=== PATIENT | female | born 1960 | race Caucasian/White ===

== ENCOUNTER → 2017-06-19 | Outpatient (CLI) | payer OTHER ==
[~2017-06-19] MED LIST: BUPR150ER PO; FLUO10 PO; SIMV10 PO
[2017-06-19 15:03] LABS: BASOPHILS ABSOLUTE AUTO 0.02 K/mm3 (0.00-0.23); BASOPHILS PERCENT AUTO 0 % (0-2); EOSINOPHILS ABSOLUTE AUTO 0.06 K/mm3 (0.00-0.68); EOSINOPHILS PERCENT AUTO 1 % (0-6); Hematocrit 42.9 % (33.0-51.0); IMMATURE GRAN ABSOLUTE AUTO 0.01 K/mm3 (0.00-0.10); IMMATURE GRAN PERCENT AUTO 0 % (0-1); LYMPHOCYTES ABSOLUTE AUTO 1.99 K/mm3 (0.84-5.20); LYMPHOCYTES PERCENT AUTO 24 % (21-46); MONOCYTES PERCENT AUTO 8 % (4-13); Mean Corpuscular HGB 29.6 pg (26.0-34.0); Mean Corpuscular HGB Conc 32.6 g/dL (31.5-36.5); Mean Corpuscular Volume 91 fL (80-100); NEUTROPHILS ABSOLUTE AUTO 5.62 K/mm3 (1.96-9.15); NEUTROPHILS PERCENT AUTO 67 % (41-73); Platelet Count 284 K/mm3 (150-400); RDW Coefficient Variation 13.4 % (11.7-14.2); RDW Standard Deviation 44.3 fL (35.1-46.3); Red Blood Cell Count 4.73 M/mm3 (3.80-5.20)
[2017-06-19 15:24] LABS: Alanine Aminotransfer (ALT/SGP 33 U/L (12-78); Albumin, Blood 3.5 g/dL (3.4-5.0); Albumin/Globulin Ratio 0.9 (0.8-1.8); Alk Phos 107 U/L (50-136); Anion Gap 5 mmol/L (6-16); Aspartate Aminotrans (AST/SGOT 17 U/L (12-37); Bilirubin, Total 0.3 mg/dL (0.1-1.0); Blood Urea Nitrogen 15 mg/dL (8-24); CO2, Blood 30 mmol/L (21-32); Calcium, Blood 9.2 mg/dL (8.5-10.1); Chloride, Blood 106 mmol/L (98-108); Cholesterol 241 mg/dL (50-200); Globulin, Blood 4.1 g/dL (2.2-4.0); Glucose, Blood 93 mg/dL (70-99); HDL Cholesterol 61 mg/dL (>39); LDL/HDL RATIO 1.9; Low Density Lipoprotein Chol 116 mg/dL (0-110); Potassium, Blood 4.3 mmol/L (3.5-5.5); Sodium, Blood 141 mmol/L (136-145); Total Protein, Blood 7.6 g/dL (6.4-8.2); Triglycerides 321 mg/dL (30-160); Very Low Density Lipoprot Chol 64 mg/dL (6-32)
[2017-06-19 15:25] LABS: Bun/Creatinine Ratio 31.1 (12.0-20.0); Creatinine, Blood 0.48 mg/dL (0.40-1.00); Glomerular Filtration Rate >60 (60-)
== END | disposition home or self-care (01) ==
LOC: LAB SHORT 14:31
PROVIDERS: Physician Assistant
DX: E78.5 Hyperlipidemia, unspecified (principal); R11.0 Nausea
CPT/HCPCS: 80053; 80061; 85025

== ENCOUNTER → 2018-03-09 | Outpatient (CLI) | payer OTHER ==
[2018-03-11 05:15] LABS: HBSAG SCREEN Negative (Negative); HCV ANTIBODY <0.1 (0.0-0.9); HIV SCREEN 4TH GENERATION WRFX Non Reactive (Non Reactive)
== END ==
LOC: LAB EV 14:55 → LAB SHORT 14:55
PROVIDERS: Family Medicine
DX: Z20.9 Contact with and (suspected) exposure to unspecified communicable disease (principal)
CPT/HCPCS: 84460; 86317; 86803; 87340; 87389

== ENCOUNTER → 2018-04-20 | Outpatient (CLI) | payer OTHER ==
[2018-04-22 01:13] LABS: HIV SCREEN 4TH GENERATION WRFX Non Reactive (Non Reactive)
== END | disposition home or self-care (01) ==
LOC: LAB SHORT 10:41 → LAB EV 10:41
PROVIDERS: Family Medicine
DX: Z20.9 Contact with and (suspected) exposure to unspecified communicable disease (principal)
CPT/HCPCS: 86803; 87389

== ENCOUNTER → 2018-06-08 | Outpatient (CLI) | payer OTHER ==
[2018-06-09 07:06] LABS: HIV SCREEN 4TH GENERATION WRFX Non Reactive (Non Reactive)
== END | disposition home or self-care (01) ==
LOC: LAB SHORT 07:39 → LAB EV 07:39
PROVIDERS: Physician Assistant
DX: Z20.9 Contact with and (suspected) exposure to unspecified communicable disease (principal)
CPT/HCPCS: 87389

== ENCOUNTER → 2018-09-06 | Outpatient (CLI) | payer OTHER ==
[2018-09-08 07:14] LABS: HCV ANTIBODY <0.1 (0.0-0.9); HIV SCREEN 4TH GENERATION WRFX Non Reactive (Non Reactive)
== END | disposition home or self-care (01) ==
LOC: LAB EV 09:58 → LAB SHORT 09:58
PROVIDERS: General Practice
DX: Z20.9 Contact with and (suspected) exposure to unspecified communicable disease (principal)
CPT/HCPCS: 84460; 86317; 86803; 87389

== ENCOUNTER 2022-08-04 17:55 | Inpatient (IN) | payer OTHER ==
[~2022-08-04] VITALS: Ht 157.5 cm; Wt 58.3 kg
[2022-08-04 18:53] LABS: BASOPHILS ABSOLUTE AUTO 0.02 K/mm3 (0.00-0.23); BASOPHILS PERCENT AUTO 0 % (0-2); EOSINOPHILS PERCENT AUTO 0 % (0-6); Hematocrit 51.6 % (33.0-51.0); Hemoglobin 17.6 g/dL (11.5-16.0); IMMATURE GRAN ABSOLUTE AUTO 0.04 K/mm3 (0.00-0.10); IMMATURE GRAN PERCENT AUTO 0 % (0-1); LYMPHOCYTES PERCENT AUTO 9 % (21-46); MONOCYTES ABSOLUTE AUTO 1.51 K/mm3 (0.16-1.47); MONOCYTES PERCENT AUTO 10 % (4-13); Mean Corpuscular HGB 29.3 pg (26.0-34.0); Mean Corpuscular HGB Conc 34.1 g/dL (31.5-36.5); Mean Corpuscular Volume 86 fL (80-100); Mean Platelet Volume 10.5 fL (9.1-12.4); NEUTROPHILS ABSOLUTE AUTO 12.81 K/mm3 (1.96-9.15); NEUTROPHILS PERCENT AUTO 81 % (41-73); Platelet Count 205 K/mm3 (150-400); RDW Coefficient Variation 13.8 % (11.7-14.2); RDW Standard Deviation 42.9 fL (35.1-46.3); Red Blood Cell Count 6.01 M/mm3 (3.80-5.20); White Blood Cell Count 15.88 K/mm3 (4.00-11.30)
[2022-08-04 19:10] LABS: Albumin, Blood 3.9 g/dL (3.4-5.0); Albumin/Globulin Ratio 0.9 (0.8-1.8); Bilirubin, Total 0.5 mg/dL (0.1-1.0); Bun/Creatinine Ratio 37.5 (12.0-20.0); Creatinine, Blood 1.84 mg/dL (0.40-1.00); Globulin, Blood 4.3 g/dL (2.2-4.0); Potassium, Blood 3.7 mmol/L (3.5-5.5); Total Protein, Blood 8.2 g/dL (6.4-8.2)
[2022-08-04 19:18] LABS: Influenza A, PCR NEGATIVE (NEGATIVE); Influenza B, PCR NEGATIVE (NEGATIVE); Resp Syncytial Virus, PCR NEGATIVE (NEGATIVE); SARS-Cov-2 (COVID-19) PCR, MMC NEGATIVE (NEGATIVE)
[2022-08-04 22:09] LABS: Source, Urine Clean Catch
[2022-08-04 22:11] LABS: Blood, Urine 2+ (Neg); Glucose Qualitative, Urine Neg (Neg); Ketones, Urine Neg (Neg); Leukocyte Esterase, Urine Neg (Neg); Nitrite, Urine Neg (Neg); Protein, Urine 3+ (Neg); Specific Gravity, Urine 1.025 (1.003-1.022); Urobilinogen, Urine NORM (Normal)
[2022-08-04 22:21] LABS: Appearance, Urine Cloudy (Clear); Bilirubin, Urine 1+ (Neg); Color, Urine Yellow (P-Yellow)
[2022-08-04 22:22] LABS: Amorphous Mod (0-Heavy); Bacteria Mod /hpf; Hyaline Casts TNTC /lpf (0-2); Mucus Light (0-Heavy); Squamous Epithelial Cells Few /hpf (Few)
[2022-08-04 22:23] LABS: Calcium Oxalate Crystals Few /hpf
--- NOTE | 2022-08-05 00:45 | NUR ---
PT ARRIVED TO ROOM FROM ER. PT A/O, VSS, REP MILD DIZZINESS HAND POLISHER R/T DEHYDRATION, DENIES AT THIS TIME. PT HAS LARGE LOWER ABD MASS, STATES MASS HAS BEEN PRESENT APPX 8 YEARS. PT REP ABD DOES FEEL MORE DISTENDED FROM BASELINE, REP PAIN IN ABD. PT REP MULTIPLE EPISODES OF N/V W/PO INTAKE, DENIES AT THIS TIME. ABD SLIGHTLY FIRM TO PALP. PT REP NO BM X1 WEEK, DENIES FLATUS. PT ORIENTED TO ROOM/CALL LIGHT AND NPO STATUS. IVF INFUSING PER ORDERS.
--- NOTE | 2022-08-05 06:45 | NUR ---
PT HAD 1 EPISODE OF N/V SINCE ARRIVING TO FLOOR, PT DECLINED NGT. PT DENIED ABD PAIN, REP NO FLATUS. PT NPO, IVF CONT PER ORDERS.
--- NOTE | 2022-08-05 10:30 | NUR ---
NG TUBE INSERTED PER MD ORDERS, 2200ML OF GREEN/BROWN FLUID IMMEDIATELY CAME OUT TO GRAVITY. BP CHECKED AND REMAINS STABLE AT THIS TIME. PLAN TO REASSES PATIENT FREQUENTLY D/T LARGE FLUID LOSS. NG TUBE TO LIS AT THIS TIME. PATIENT TOLERATING WELL.
--- NOTE | 2022-08-05 17:50 | NUR ---
SHIFT SUMMARY NO ACUTE CHANGES THIS SHIFT. PATIENT HAS HAD VERY LARGE AMOUNT OUT OF NG TUBE SINCE INSERTION, TOLERATING WELL. DENIES N/V SINCE HAVING NG TUBE. DENIES PAIN. NPO CURRENTLY. IND TO BATHROOM, VOIDING WELL. DENIES FLATUS & BM. CALLS APPROPRIATELY, CALL LIGHT IN REACH. WILL REPORT TO ONCOMING RN AT 1900.
[2022-08-06 04:16] LABS: Hematocrit 46.7 % (33.0-51.0); Hemoglobin 15.6 g/dL (11.5-16.0); Mean Corpuscular HGB 29.5 pg (26.0-34.0); Mean Corpuscular HGB Conc 33.4 g/dL (31.5-36.5); Mean Corpuscular Volume 88 fL (80-100); Mean Platelet Volume 11.2 fL (9.1-12.4); Platelet Count 134 K/mm3 (150-400); RDW Coefficient Variation 13.7 % (11.7-14.2); RDW Standard Deviation 44.8 fL (35.1-46.3); Red Blood Cell Count 5.28 M/mm3 (3.80-5.20); White Blood Cell Count 5.08 K/mm3 (4.00-11.30)
--- NOTE | 2022-08-06 06:07 | NUR ---
Patient independent in room. Denies nausea and pain at this time. Abdomen has large hernia visible and palpable. Bowel sounds are hypoactive. NG TUBE output is dark green with a total output of 3600mL. Voiding well, patient reports flatulence. No stool noted.
[2022-08-06 07:26] LABS: Blood Urea Nitrogen 60 mg/dL (8-24); Bun/Creatinine Ratio 66.4 (12.0-20.0); Chloride, Blood 83 mmol/L (98-108); Glomerular Filtration Rate 72 (60-); Glucose, Blood 136 mg/dL (70-99); Sodium, Blood 143 mmol/L (136-145)
[2022-08-06 07:27] LABS: Anion Gap Unable to Calculate mmol/L (6-16); CO2, Blood >45 mmol/L (21-32)
[2022-08-06 07:28] LABS: Potassium, Blood 2.4 mmol/L (3.5-5.5)
--- NOTE | 2022-08-06 09:28 | NUR ---
PT DISCONNECTED FROM SUCTION AT THIS TIME FOR SBFT. EDUCATED PT ON IMPORTANCE OF NOTIFYING NURSING STAFF IF SHE BEGINS TO FEEL NAUSEOUS AGAIN WHILE CLAMPED.
[2022-08-06 14:18] LABS: Anion Gap Unable to Calculate mmol/L (6-16); CO2, Blood >45 mmol/L (21-32); Chloride, Blood 82 mmol/L (98-108); Potassium, Blood 2.5 mmol/L (3.5-5.5); Sodium, Blood 151 mmol/L (136-145)
[2022-08-06 16:32] LABS: PCO2 Venous 70.3 mmHg (38-42)
[2022-08-06 16:34] LABS: Base Excess Venous 47.4 mmol/L; Bicarbonate Venous 67.9 mmol/L (24.0-30.0)
--- NOTE | 2022-08-06 18:16 | NUR ---
SHIFT SUMMARY ASSUMED CARE OF PATIENT AT 1000. ALERT AND ORIENTED AND ANXIOUS IN THE ROOM. SMALL BOWEL FOLLOW THROUGH STUDY WAS IN PROGRESS. NG TUBE IN PLACE AND CLAMPED. PATIENT DENIED NAUSEA EARLY IN DAY, PROGRESSIVELY FELT WORSE THROUGH AFTERNOON. STATED ABD FELT MORE DISTENDED AND HARD. DIFFICULT TO ASSESS DUE TO LARGE ABD HERNIA. DENIES PASSING GAS. VBGS RESULTS IN EMAR. DIAMOX ORDERED. 20 MEQ NS RUNNING. REATTACHED NG TO LOW CONT SUCTION, FLUSHED WITH SYRINGE AND 3L OUTPUT. TELE PLACED DUE TO LOW POTASSIUM, TELE CALLED WITH NEW ST ELEVATION. EKG DONE, RESULTS CALLED TO DR MARSHALL. ORDERS TO CONTINUE TO MONITORING. PATIENT REPORTS ABD PRESSURE RELIEF AFTER 3L OUTPUT. O2 PLACED VIA NC TO KEEP SATS ABOVE 90%. OTHER VSS. WILL CONTINUE TO MONITOR.
[2022-08-06 20:56] LABS: Anion Gap Unable to Calculate mmol/L (6-16); Blood Urea Nitrogen 70 mg/dL (8-24); Bun/Creatinine Ratio 58.3 (12.0-20.0); CO2, Blood >45 mmol/L (21-32); Calcium, Blood 10.2 mg/dL (8.5-10.1); Chloride, Blood 81 mmol/L (98-108); Glomerular Filtration Rate 51 (60-); Glucose, Blood 139 mg/dL (70-99); Potassium, Blood 2.2 mmol/L (3.5-5.5); Sodium, Blood 152 mmol/L (136-145)
[2022-08-07 03:33] LABS: Hematocrit 53.1 % (33.0-51.0); Hemoglobin 16.7 g/dL (11.5-16.0); Mean Corpuscular HGB 29.8 pg (26.0-34.0); Mean Corpuscular HGB Conc 31.5 g/dL (31.5-36.5); Mean Platelet Volume 11.7 fL (9.1-12.4); Platelet Count 158 K/mm3 (150-400); RDW Coefficient Variation 13.9 % (11.7-14.2); RDW Standard Deviation 49.5 fL (35.1-46.3); White Blood Cell Count 9.69 K/mm3 (4.00-11.30)
[2022-08-07 04:31] LABS: Alanine Aminotransfer (ALT/SGP 26 U/L (12-78); Albumin, Blood 3.2 g/dL (3.4-5.0); Albumin/Globulin Ratio 0.8 (0.8-1.8); Alk Phos 102 U/L (50-136); Aspartate Aminotrans (AST/SGOT 26 U/L (12-37); Bilirubin, Total 0.7 mg/dL (0.1-1.0); Blood Urea Nitrogen 78 mg/dL (8-24); Bun/Creatinine Ratio 47.9 (12.0-20.0); Calcium, Blood 9.8 mg/dL (8.5-10.1); Chloride, Blood 86 mmol/L (98-108); Creatinine, Blood 1.63 mg/dL (0.40-1.00); Globulin, Blood 4.2 g/dL (2.2-4.0); Glomerular Filtration Rate 35 (60-); Glucose, Blood 172 mg/dL (70-99); Potassium, Blood 3.2 mmol/L (3.5-5.5); Sodium, Blood 151 mmol/L (136-145); Total Protein, Blood 7.4 g/dL (6.4-8.2)
[2022-08-07 04:32] LABS: Anion Gap Unable to Calculate mmol/L (6-16)
[2022-08-07 04:33] LABS: CO2, Blood >45 mmol/L (21-32)
[2022-08-07 04:44] LABS: Mean Corpuscular Volume 95 fL (80-100)
--- NOTE | 2022-08-07 05:06 | NUR ---
SHIFT SUMMARY PT RESTED WELL. DENIES ABD PAIN + REPORTS FLATUS. NO BMS THIS SHIFT. NGT TO LIS WITH GREEN OUTPUT. NPO WITH SMALL AMOUNT OF ICE CHIPS. 1 SBA TO RESTROOM. X1 K+ RIDER GIVEN THIS SHIFT. IVF INFUSING PER ORDERS. NO TELE CHANGES--REMAINS IN NSR. PT REPORTS SHE IS FEELING BETTER AND IS HUNGRY AND WANTS TO EAT. CALL LIGHT WITHIN REACH.
[2022-08-07 05:23] LABS: BAND PERCENT MAN 13 % (0-8); BASOPHILS PERCENT MAN 0 % (0-2); EOSINOPHILS ABSOLUTE MAN 0.09 K/mm3 (0.00-0.68); EOSINOPHILS PERCENT MAN 1 % (0-6); LYMPHOCYTES ABSOLUTE MAN 0.67 K/mm3 (0.84-5.20); LYMPHOCYTES PERCENT MAN 7 % (21-46); MONOCYTES ABSOLUTE MAN 1.45 K/mm3 (0.16-1.47); MONOCYTES PERCENT MAN 15 % (4-13); NEUTROPHILS ABSOLUTE MAN 7.46 K/mm3 (1.96-9.15); SEG NEUTROPHILS PERCENT MAN 64 % (41-73); TOTAL CELLS COUNTED 100
[2022-08-07 11:59] LABS: Anion Gap Unable to Calculate mmol/L (6-16); Blood Urea Nitrogen 86 mg/dL (8-24); Bun/Creatinine Ratio 43.7 (12.0-20.0); CO2, Blood >45 mmol/L (21-32); Calcium, Blood 9.3 mg/dL (8.5-10.1); Chloride, Blood 86 mmol/L (98-108); Creatinine, Blood 1.97 mg/dL (0.40-1.00); Glomerular Filtration Rate 28 (60-); Glucose, Blood 226 mg/dL (70-99); Potassium, Blood 2.7 mmol/L (3.5-5.5); Sodium, Blood 152 mmol/L (136-145)
[2022-08-07 12:57] LABS: PCO2 Venous 55.9 mmHg (38-42)
[2022-08-07 12:59] LABS: Base Excess Venous 46.3 mmol/L; Bicarbonate Venous 70.3 mmol/L (24.0-30.0); pH Blood Venous 7.68 (7.34-7.37)
[2022-08-07 13:19] LABS: PO2 Arterial 59.1 mmHg (80-100)
[2022-08-07 13:26] LABS: Magnesium, Blood 3.6 mg/dL (1.6-2.4)
[2022-08-07 13:47] LABS: Albumin, Blood 2.8 g/dL (3.4-5.0); Anion Gap Unable to Calculate mmol/L (6-16); Blood Urea Nitrogen 87 mg/dL (8-24); Bun/Creatinine Ratio 46.5 (12.0-20.0); CO2, Blood >45 mmol/L (21-32); Calcium, Blood 9.3 mg/dL (8.5-10.1); Chloride, Blood 88 mmol/L (98-108); Creatinine, Blood 1.87 mg/dL (0.40-1.00); Glomerular Filtration Rate 30 (60-); Glucose, Blood 223 mg/dL (70-99); Phosphorus, Blood 3.9 mg/dL (2.5-4.9); Potassium, Blood 2.6 mmol/L (3.5-5.5); Sodium, Blood 154 mmol/L (136-145)
--- NOTE | 2022-08-07 14:14 | NUR ---
MORNING SHIFT SUMMARY PATIENT FATIGUED AND DROWSY IN BED THIS AM. WEAK AND SHAKEY WITH SBA TO TOILET. REPORTED FEELING EXHAUSTED. NG TUBE TO L CONT SUCTION. NG REQUIRES FREQUENT FLUSH WITH PISTON SYRINGE TO CLEAR. 900 OUTPUT AT BEGINNING OF SHIFT. DARK GREEN WITH SMALL CHUNKS. TELE NSR IN 80S WITH QT PROLONGATION PER UMBRELLA FINISHER. DESATS OCCASIONALLY ON RA, PLACED TO 1 L O2 VIA NC. OTHER VSS. LABS: KIDNEY FUNCTION DETERIORATING, ALKALOTIC. IV FLUID ORDERS CHANGED SEVERAL TIMES. DR MARSHALL EXAMINED PATIENT X2 DURING AM. DR VELASQUEZ EXAMINED PATIENT. MENTATION CONTINUED TO DETERIORATE BY LUNCH TIME, DIFFICULTY STATING HER LOCATION AND THE DATE. VERY LETHARGIC. URINE OUTPUT IS LOW. ORDERS GIVEN TO TRANSFER PATIENT TO PCU FOR DECREASED MENTATION AND WORSENING ALKALOSIS. SBFT DURING AM SHOWED PERSISTENT SBO, HOWEVER PATIENT DID REPORT PASSING GAS. ORDERS WERE GIVEN TO CONSULT DR HDEZ, OBTAIN 1V CHEST XRAY, HEAD CT, AND VBG AND ABG. XRAY COMPLETED IN ROOM, PATIENT TRANSPORTED TO CT, REPORT GIVEN TO PCU NURSE AT BEDSIDE IN PCU ROOM 1. RT TO BEDSIDE TO DRAW ABG. DR HDEZ EXAMINED PATIENT.
--- NOTE | 2022-08-07 14:21 | NUR ---
BLADDER SCAN 113.
--- NOTE | 2022-08-07 14:45 | NUR ---
Pt arrived to PCU [address] scan of the head. She was not alert, but lethargic, opening eyes to conversation. Able to correct the pronunciation of her name, give us her location, but unable to give any date/time/season. She was able to say that the POTUS is Biden. Most of the questions asked of her she says, "let me think" and then cannot answer. Sleeping in between all care. Vital signs are stable, but she is requiring oxygen at 2 l/min to keep spo2 greater than 94%. PERRL. Symmetry of her facial expressions; soft palate rises symmetrically. No lateral tongue deviation. Mucous membranes are dry. Pt is NPO. NGT is in place, evacuating dark greenish liquid to low continuous suction. Equal strength and symmetry of movement of her extremities. Skin is pink, warm, intact and dry all extremities, with brisk capillary refill.
--- NOTE | 2022-08-07 15:09 | NUR ---
Call to Dr. Hewitt to give results of labs drawn at 12:45. New orders were recieved.
--- NOTE | 2022-08-07 15:40 | NUR ---
Vacuum suction wall unit changed to accomodate intermittent suction. NGT now to LIS. Dr. Jorgensen consulted, per Dr. Hewitt's request. No new orders.
--- NOTE | 2022-08-07 16:52 | NUR ---
The pt has remained lethargic, sleepy, only opening eyes to conversation, and then she is not always coherent. She is mumbling in her sleep, frequently self-repositioning, throwing her covers off and turning side to side. Minimal output from the NGT since 2 pm; less than 100 cc. Noted occasional periods of apnea, about 20-30 seconds and reported to warehouse engineer. Continuous monitoring of heart rhythm, respirations, spo2 and q2 monitoring of blood pressure. All are stable at this time. Neuro checks remain unchanged.
--- NOTE | 2022-08-07 18:36 | NUR ---
Call to Dr. Hewitt's cell phone, as he requested, to report Na and K results. No answer; voice mail was left.
[2022-08-07 23:11] LABS: Albumin, Blood 2.6 g/dL (3.4-5.0); Blood Urea Nitrogen 92 mg/dL (8-24); Bun/Creatinine Ratio 48.9 (12.0-20.0); Calcium, Blood 8.5 mg/dL (8.5-10.1); Chloride, Blood 88 mmol/L (98-108); Creatinine, Blood 1.88 mg/dL (0.40-1.00); Glomerular Filtration Rate 30 (60-); Glucose, Blood 273 mg/dL (70-99); Phosphorus, Blood 3.3 mg/dL (2.5-4.9); Potassium, Blood 2.6 mmol/L (3.5-5.5); Sodium, Blood 148 mmol/L (136-145)
[2022-08-07 23:15] LABS: Anion Gap Unable to Calculate mmol/L (6-16)
[2022-08-07 23:17] LABS: CO2, Blood >45 mmol/L (21-32)
[2022-08-08 05:02] LABS: Albumin, Blood 2.3 g/dL (3.4-5.0); Blood Urea Nitrogen 85 mg/dL (8-24); Bun/Creatinine Ratio 53.5 (12.0-20.0); Calcium, Blood 7.7 mg/dL (8.5-10.1); Chloride, Blood 92 mmol/L (98-108); Creatinine, Blood 1.59 mg/dL (0.40-1.00); Glomerular Filtration Rate 37 (60-); Glucose, Blood 355 mg/dL (70-99); Phosphorus, Blood 2.1 mg/dL (2.5-4.9); Potassium, Blood 3.7 mmol/L (3.5-5.5); Sodium, Blood 144 mmol/L (136-145)
[2022-08-08 05:03] LABS: Anion Gap Unable to Calculate mmol/L (6-16)
[2022-08-08 05:05] LABS: CO2, Blood >45 mmol/L (21-32)
--- NOTE | 2022-08-08 05:12 | NUR ---
SHIFT SUMMARY ASSUMED CARE OF PT AT 1900. PT IS ALERT BUT UNABLE TO SNWER ORIENTATION QUESTIONS AND REPEATS HERSELF. FOR EXAMPLE, PT WILL LAY IN BED AND REPEAT "WOW". PT WILL ALSO CALL OUT TO HER MOM WHO HAS PASSED AND MAKE SOUNDS LIKE A CAT. HEART SOUNDS REGULAR. LUNG SOUNDS CLEAR. PT WAS UNABLE TO TOLERATE BEING OFF NC, REMAINED ON 2L. PT WAS TURNED Q2. PT WAS ABLE TO GET UP WITH A 2P HEAVY ASSIST TO BSC, LOTS OF DIRECTION AND REASSURANCE. DR HDEZ UPDATED WITH LABS AND ORDERED MEDICATIONS PER ASSESSMENT.
[2022-08-08 05:59] LABS: PO2 Arterial 81.3 mmHg (80-100); pH Blood Arterial 7.53 (7.35-7.45)
--- NOTE | 2022-08-08 09:53 | NUR ---
Opening her eyes spontaneously, looking around. Repetitive words like "oh" and "wow". Does not initiate conversation with staff, but did answer orientation questions about her name, birthday, and place. Able to say that she is in hospital because of a bowel obstruction. Kept repeating"UM" when asked about the date, the season, and the recent weather. She remembered that her doctor had just seen her in the room. She is able to say that she thinks that she came into the hospital a few days ago. NGT to low intermittent suction, 300 cc evacuated so far this shift of dark greenish brown material. Hypoactive bowel tones noted. Denies abdominal pain, both before and during gentle palpation. IV fluids infusing as ordered via powerglide right upper arm. Pt lungs are clear to auscultation, but diminished. Attempted to wean off of oxygen, but Spo2 87% on room air. Increased to 1 l/min of O2, but spo2 88% at rest. Pt is back on 2 l/min. She occasionally is coughing up very small amounts of thick yellow sputum. Respiratory rate is 15-19/minute, unlabored and without accessory muscle use. Lying flat in the bed. Spontaneous movements of all extremities, and she denies pain at this time.
--- NOTE | 2022-08-08 10:56 | NUR ---
Returned from imaging. Alert, oriented to person, place, and says year is 2021, season is fall or winter and month is June. Carrying on spontaeous conversation. No longer lethargic. Bed alarm is still on.
--- NOTE | 2022-08-08 13:30 | NUR ---
Pt was up to BSC to void, required only 1 staff member to stand and pivot, minimal assistance mainly due to multiple tubes and cords in use for patient care and treatment. Assisted back to bed, bed alarm on.
[2022-08-08 13:42] LABS: Albumin, Blood 2.4 g/dL (3.4-5.0); Anion Gap Unable to Calculate mmol/L (6-16); Blood Urea Nitrogen 70 mg/dL (8-24); Bun/Creatinine Ratio 55.1 (12.0-20.0); CO2, Blood >45 mmol/L (21-32); Calcium, Blood 7.7 mg/dL (8.5-10.1); Chloride, Blood 91 mmol/L (98-108); Creatinine, Blood 1.27 mg/dL (0.40-1.00); Glomerular Filtration Rate 48 (60-); Glucose, Blood 131 mg/dL (70-99); Phosphorus, Blood 2.2 mg/dL (2.5-4.9); Potassium, Blood 2.4 mmol/L (3.5-5.5); Sodium, Blood 141 mmol/L (136-145)
--- NOTE | 2022-08-08 14:10 | NUR ---
Mentation much improved since this morning. She was becoming frustrated and agitated at time of CT scan today, and said she didn't know what was going on. Also expressed that she needed an emotional support person, and was unable to use her phone to call her friend Paty. Helped pt to call her sister in law Carmela until we were able to get her cell phone working. EVents and pt condition were discussed at length with the patient who then said that she understood why she was having scans and was in a different room than yesterday. She is sitting up in the bed, talking and using her cell phone at this time. Call to Dr. Hewitt the results of the 1300 lab draw.
--- NOTE | 2022-08-08 14:39 | NUR ---
Call from Carmela, pt's sister in law. Updated on pt condition. Pt is agitated. States that she wants to know what is going on and why is has been moved to another room. I began to explain and then she waved her hand and said "I just don't even want to know." Her friend Paty arrived with Paty's mother and are here explaining to the patient what has happened the past 2 days and why she is in PCU. Pt states "I have been so out of it". During the conversation with her friend Paty she recalled that she fell at home about 3 weeks ago.
--- NOTE | 2022-08-08 16:00 | NUR ---
Pt is alert, oriented to person, place, ongoing events. Having difficulty processing and remembering new information. Expressing some frustration at not knowing how to work her cell phone. Denies pain, nausea.
--- NOTE | 2022-08-08 17:57 | NUR ---
PT is alert and conversant. She expresses frustration at not knowing what is going on. She is confused about ongoing events and cannot recall that her friend was here for a visit, and doesn't remember information given to her repeatedly over the course of this afternoon. She had a visit from Dr. Dowd, at her request since she "did not know what was going on", but pt only expressed frustration at not understanding how to use her cell phone to the doctor. Her friends were here, and explained to the patient about her current illness, electrolyte imbalance, and reassured her about her care; however, when they left the pt became frustrated again and has asked repeatedly to talk with them. She is asking if they are coming in to see her, but it is snowing and we have explained to the patient that the weather will not permit it. She demonstrated inability to retain this information.
--- NOTE | 2022-08-08 19:20 | NUR ---
Pt was helped to a recliner chair and she is more comfortable she says, and feels like she is "getting her bearings". Chair alarm is on. Bedside report was given to LUCY Cuevas.
[2022-08-08 20:52] LABS: Albumin, Blood 2.4 g/dL (3.4-5.0); Anion Gap 3 mmol/L (6-16); Blood Urea Nitrogen 60 mg/dL (8-24); Bun/Creatinine Ratio 60.2 (12.0-20.0); CO2, Blood 43 mmol/L (21-32); Calcium, Blood 7.5 mg/dL (8.5-10.1); Chloride, Blood 91 mmol/L (98-108); Glomerular Filtration Rate 64 (60-); Glucose, Blood 146 mg/dL (70-99); Phosphorus, Blood 2.6 mg/dL (2.5-4.9); Potassium, Blood 2.5 mmol/L (3.5-5.5); Sodium, Blood 137 mmol/L (136-145)
[2022-08-09 04:22] LABS: Hematocrit 39.4 % (33.0-51.0); Hemoglobin 12.5 g/dL (11.5-16.0)
[2022-08-09 04:44] LABS: Albumin, Blood 2.3 g/dL (3.4-5.0); Anion Gap 4 mmol/L (6-16); Blood Urea Nitrogen 44 mg/dL (8-24); Bun/Creatinine Ratio 56.5 (12.0-20.0); CO2, Blood 38 mmol/L (21-32); Calcium, Blood 7.6 mg/dL (8.5-10.1); Chloride, Blood 99 mmol/L (98-108); Creatinine, Blood 0.78 mg/dL (0.40-1.00); Glomerular Filtration Rate 86 (60-); Glucose, Blood 173 mg/dL (70-99); Magnesium, Blood 2.3 mg/dL (1.6-2.4); Phosphorus, Blood 2.2 mg/dL (2.5-4.9); Potassium, Blood 2.5 mmol/L (3.5-5.5); Sodium, Blood 141 mmol/L (136-145)
--- NOTE | 2022-08-09 06:38 | NUR ---
SHIFT SUMMARY PATIENT ALERT AND ORIENTED X3. WAS CONFUSED AND AGITATED AT THE BEGINNING OF THE SHIFT WITH PARANOID DELUSIONS, TALKING IN CIRCLES AND PULLING AT LINES. ENDED UP PULLING HER NG TUBE OUT. PATEINT'S MENTATION HAS IMPROVED OVERNIGHT. PATIENT STILL HAS SOME CONFUSION, BUT IS NO LONGER AGITATED. VITAL SIGNS STABLE. NG TUBE LEFT OUT AFTER CONSULTING WITH CHARGE NURSE THE OUTPUT HAD SLOWED DOWN, IT WAS AGITATING THE PATIENT, AND SHE DENIED ANY NAUSEA OR ABDOMINAL PAIN. PATIENT CONTINUES TO DENY NAUSEA AND ABDOMINAL PAIN, ABDOMEN SOFT TO PALPATION. LUNG SOUNDS DIMINISHED IN THE BASES. SPO2 >90% ON ROOM AIR. PATIENT REMAINS IN SINUS RHYTHM ON TELE, OCCASIONALLY DROPS TO THE HIGH FORTIES FOR A FEW SECONDS. RELAYED MORNING LABS TO DR HDEZ WHO ORDERED 40 MEQ POTASSIUM CHLORIDE IV, 20 MILLIMOLES POTASSIUM PHOSPHATE IV, DISCONTINUE D5W, AND RENAL PANNEL AT NOON. CONSULTED WITH PHARMACIST CAMERON REGARDING ADMINISTRATION OF THE KPHOS AND KCL, SHE RECOMMENDED RUNNING ONE BAG AND THEN THE OTHER. WILL CONTINUE TO MONITOR. CALL LIGHT WITHIN REACH.
[2022-08-09 12:50] LABS: Albumin, Blood 2.3 g/dL (3.4-5.0); Anion Gap 4 mmol/L (6-16); Blood Urea Nitrogen 34 mg/dL (8-24); Bun/Creatinine Ratio 50.4 (12.0-20.0); CO2, Blood 31 mmol/L (21-32); Calcium, Blood 7.8 mg/dL (8.5-10.1); Chloride, Blood 107 mmol/L (98-108); Creatinine, Blood 0.67 mg/dL (0.40-1.00); Glomerular Filtration Rate 99 (60-); Glucose, Blood 167 mg/dL (70-99); Phosphorus, Blood 2.8 mg/dL (2.5-4.9); Potassium, Blood 3.1 mmol/L (3.5-5.5); Sodium, Blood 142 mmol/L (136-145)
--- NOTE | 2022-08-09 17:52 | NUR ---
NO ACUTE CHANGES T/O THE SHIFT. NGT PLACED PER DR VELASQUEZ'S ORDERS, PT TOLERAGTED WELL, GOOD RETURN OF GREEN FLUIDS, TO LOW INTERMITTENT SUCTION. LABS MONITORED AND DR HDEZ UPDATED ON RESULTS PER HIS REQUESTS. PT HAS REMAINED ALERT AND OREINTED T/O THE SHIFT, FAMILY IN TO VISIT AND UPDATED ON PLAN OF CARE: BOWEL REST OVER THE WEEKEND WITH POSSIBLE SX ON FRIDAY IF SBO NOT RESOLVED, CONTINUE TO MONITOR ELECTROLYTES AND REPLACE NEEDED. PT ABLE TO USE CALL LIGHT FOR NEEDS, CALL LIGHT IN REACH, WILL CONTINUE TO MONITOR AND GIVE REPORT TO NOC SHIFT RN.
[2022-08-09 18:41] LABS: Albumin, Blood 2.4 g/dL (3.4-5.0); Anion Gap 5 mmol/L (6-16); Blood Urea Nitrogen 28 mg/dL (8-24); Bun/Creatinine Ratio 41.1 (12.0-20.0); CO2, Blood 27 mmol/L (21-32); Calcium, Blood 8.1 mg/dL (8.5-10.1); Chloride, Blood 110 mmol/L (98-108); Creatinine, Blood 0.68 mg/dL (0.40-1.00); Glomerular Filtration Rate 98 (60-); Glucose, Blood 103 mg/dL (70-99); Phosphorus, Blood 2.3 mg/dL (2.5-4.9); Potassium, Blood 3.4 mmol/L (3.5-5.5); Sodium, Blood 142 mmol/L (136-145)
--- NOTE | 2022-08-09 18:57 | NUR ---
DR HDEZ NOTIFIED OF [facility] LAB RESULTS, NEW ORDERS RECEIVED.
[2022-08-10 04:25] LABS: Hematocrit 38.7 % (33.0-51.0); Hemoglobin 12.4 g/dL (11.5-16.0)
[2022-08-10 04:44] LABS: Albumin, Blood 2.1 g/dL (3.4-5.0); Anion Gap 4 mmol/L (6-16); Blood Urea Nitrogen 24 mg/dL (8-24); Bun/Creatinine Ratio 44.4 (12.0-20.0); CHOL/HDL RATIO 2.4; CO2, Blood 23 mmol/L (21-32); Calcium, Blood 8.4 mg/dL (8.5-10.1); Chloride, Blood 114 mmol/L (98-108); Cholesterol 99 mg/dL (50-200); Creatinine, Blood 0.54 mg/dL (0.40-1.00); Glomerular Filtration Rate 104 (60-); Glucose, Blood 111 mg/dL (70-99); HDL Cholesterol 42 mg/dL (>39); LDL/HDL RATIO 0.5; Low Density Lipoprotein Chol 21 mg/dL (0-110); Magnesium, Blood 2.1 mg/dL (1.6-2.4); Potassium, Blood 3.4 mmol/L (3.5-5.5); Sodium, Blood 141 mmol/L (136-145); Triglycerides 180 mg/dL (30-160); Very Low Density Lipoprot Chol 36 mg/dL (6-32)
[2022-08-10 15:30] LABS: Albumin, Blood 2.2 g/dL (3.4-5.0); Anion Gap 5 mmol/L (6-16); Blood Urea Nitrogen 22 mg/dL (8-24); Bun/Creatinine Ratio 47.4 (12.0-20.0); CO2, Blood 21 mmol/L (21-32); Calcium, Blood 8.3 mg/dL (8.5-10.1); Chloride, Blood 117 mmol/L (98-108); Creatinine, Blood 0.46 mg/dL (0.40-1.00); Glomerular Filtration Rate 108 (60-); Glucose, Blood 123 mg/dL (70-99); Phosphorus, Blood 1.9 mg/dL (2.5-4.9); Potassium, Blood 3.9 mmol/L (3.5-5.5); Sodium, Blood 143 mmol/L (136-145)
--- NOTE | 2022-08-10 18:30 | NUR ---
SHIFT SUMMARY ASSUMED CARE OF PT AT 0700 THIS AM. NO ACUTE CHANGES TO PT CONDITION NOTED T/O THE SHIFT. DR HDEZ CONTACTED, UPDATED ON LAB VALUES THIS AFTERNOON AND NEW ORDERS RECEIVED. PT HAS HAD NO COMPLAINTS T/O THE SHIFT, VSS. HR NOTED TO TOUCH BRIEFLY INTO THE 30s WHEN PT IS SLEEPING, PT IS ASYMPTOMATIC WITH THIS. SEE TELEMETRY STRIPS. PT HAS REMAINED ALERT AND ORIENTED X 4 THROUGHOUT THE DAY, ABLE TO USE CALL LIGHT FOR NEEDS, CALL LIGHT IN REACH, WILL CONTINUE TO MONITOR AND GIVE REPORT TO NOC SHIFT RN.
[2022-08-10 21:46] LABS: Albumin, Blood 2.3 g/dL (3.4-5.0); Anion Gap 5 mmol/L (6-16); Blood Urea Nitrogen 21 mg/dL (8-24); Bun/Creatinine Ratio 43.3 (12.0-20.0); CO2, Blood 22 mmol/L (21-32); Calcium, Blood 8.3 mg/dL (8.5-10.1); Chloride, Blood 115 mmol/L (98-108); Creatinine, Blood 0.49 mg/dL (0.40-1.00); Glomerular Filtration Rate 107 (60-); Glucose, Blood 124 mg/dL (70-99); Phosphorus, Blood 2.9 mg/dL (2.5-4.9); Potassium, Blood 3.7 mmol/L (3.5-5.5); Sodium, Blood 142 mmol/L (136-145)
[2022-08-11 04:28] LABS: Hemoglobin 12.7 g/dL (11.5-16.0)
[2022-08-11 04:44] LABS: Albumin, Blood 2.2 g/dL (3.4-5.0); Anion Gap 5 mmol/L (6-16); Blood Urea Nitrogen 18 mg/dL (8-24); Bun/Creatinine Ratio 40.7 (12.0-20.0); CO2, Blood 21 mmol/L (21-32); Calcium, Blood 8.7 mg/dL (8.5-10.1); Chloride, Blood 117 mmol/L (98-108); Creatinine, Blood 0.44 mg/dL (0.40-1.00); Glomerular Filtration Rate 109 (60-); Glucose, Blood 115 mg/dL (70-99); Magnesium, Blood 2.1 mg/dL (1.6-2.4); Phosphorus, Blood 2.2 mg/dL (2.5-4.9); Potassium, Blood 3.6 mmol/L (3.5-5.5); Sodium, Blood 143 mmol/L (136-145)
--- NOTE | 2022-08-11 05:11 | NUR ---
SHIFT SUMMARY PT IS A&OX4, Q4 NUERO CHECKS (HAS BEEN W/O ANY CHANGES), MAKES NEEDS KNOWN, CALLS APPROPRIATELY, SBA TO THE BSC, Q6 CBG, AND HAS NOT HAD ANY COMPLAINTS THIS SHIFT. DR. BARBOSA WAS NOTIFIED OF 2100 AND 0400 LABS, AND HE ASKED TO BE NOTIFIED OF 1600 LABS. PT IS ROOM AIR AND HAS BEEN SB/SR 30'S-70'S ON TELE THIS SHIFT. SHE HAS NGT TO LIS AND TUBE IS SECURE. BED IN LOW, CALL LIGHT IN REACH, AND I WILL CONTINUE TO MONITOR UNTIL SHIFT REPORT IS GIVEN TO THE ONCOMING SHIFT RN. SEE NOTES FOR ANY UPDATES.
[2022-08-11 16:28] LABS: Albumin, Blood 2.2 g/dL (3.4-5.0); Albumin/Globulin Ratio 0.6 (0.8-1.8); Bilirubin, Total 0.3 mg/dL (0.1-1.0); Bun/Creatinine Ratio 29.2 (12.0-20.0); Calcium, Blood 8.4 mg/dL (8.5-10.1); Creatinine, Blood 0.41 mg/dL (0.40-1.00); Globulin, Blood 3.9 g/dL (2.2-4.0); Magnesium, Blood 1.8 mg/dL (1.6-2.4); Phosphorus, Blood 2.1 mg/dL (2.5-4.9); Potassium, Blood 3.6 mmol/L (3.5-5.5); Total Protein, Blood 6.1 g/dL (6.4-8.2)
--- NOTE | 2022-08-11 17:47 | NUR ---
SHIFT SUMMARY: ASSUMED CARE OF PT AT 0700 THIS AM. NO CHANGES TO PT CONDITION T/O THE SHIFT, PT ABLE TO PASS GAS TODAY AND HAD A VERY VERY SMALL BM. NGT CONTINUES TO LIS WITH GREEN DRAINAGE NOTED. PT HAS REMAINED ALERT AND ORIENTED X 4, USES CALL LIGHT FOR NEEDS. WILL BE NPO P MN FOR POSSIBLE SURGERY TOMORROW. SEE DOCUMENTED VS AND ASSESSMENT. DR HDEZ NOTIFIED OF THIS AFTERNOON'S LABS, AND NEW ORDERS RECEIVED. CALL LIGHT IN REACH, WILL CONTINUE TO MONITOR AND GIVE REPORT TO NOC SHIFT RN.
[2022-08-12 04:06] LABS: BASOPHILS ABSOLUTE AUTO 0.02 K/mm3 (0.00-0.23); BASOPHILS PERCENT AUTO 0 % (0-2); EOSINOPHILS ABSOLUTE AUTO 0.14 K/mm3 (0.00-0.68); EOSINOPHILS PERCENT AUTO 1 % (0-6); Hemoglobin 12.3 g/dL (11.5-16.0); IMMATURE GRAN ABSOLUTE AUTO 0.12 K/mm3 (0.00-0.10); IMMATURE GRAN PERCENT AUTO 1 % (0-1); LYMPHOCYTES ABSOLUTE AUTO 1.61 K/mm3 (0.84-5.20); LYMPHOCYTES PERCENT AUTO 15 % (21-46); MONOCYTES PERCENT AUTO 7 % (4-13); Mean Corpuscular HGB 29.8 pg (26.0-34.0); Mean Corpuscular HGB Conc 34.2 g/dL (31.5-36.5); Mean Corpuscular Volume 87 fL (80-100); Mean Platelet Volume 11.7 fL (9.1-12.4); NEUTROPHILS ABSOLUTE AUTO 8.19 K/mm3 (1.96-9.15); NEUTROPHILS PERCENT AUTO 75 % (41-73); Platelet Count 92 K/mm3 (150-400); RDW Coefficient Variation 13.3 % (11.7-14.2); RDW Standard Deviation 42.7 fL (35.1-46.3); Red Blood Cell Count 4.13 M/mm3 (3.80-5.20); White Blood Cell Count 10.88 K/mm3 (4.00-11.30)
[2022-08-12 04:42] LABS: Albumin, Blood 2.1 g/dL (3.4-5.0); Albumin/Globulin Ratio 0.6 (0.8-1.8); Bilirubin, Total 0.5 mg/dL (0.1-1.0); Bun/Creatinine Ratio 33.6 (12.0-20.0); Calcium, Blood 8.3 mg/dL (8.5-10.1); Creatinine, Blood 0.42 mg/dL (0.40-1.00); Globulin, Blood 3.8 g/dL (2.2-4.0); Magnesium, Blood 1.8 mg/dL (1.6-2.4); Phosphorus, Blood 3.1 mg/dL (2.5-4.9); Potassium, Blood 3.8 mmol/L (3.5-5.5); Total Protein, Blood 5.9 g/dL (6.4-8.2)
--- NOTE | 2022-08-12 06:05 | NUR ---
SHIFT SUMMARY PATIENT ALERT AND ORIENTED, ABLE TO MAKE NEEDS KNOWN TO STAFF. ANXIOUS ABOUT POSSIBLE SURGERY BUT IS EASILY REDIRECTED. VSS. NGT IN PLACE TO LOW INTERMITTENT SUCTION. PATIENT DENIES NAUSEA OR VOMITING. NO BOWEL MOVEMENT OVERNIGHT. CLINIMIX INFUSING PER EMAR. PATIENT IS A STANDBY ASSIST TO THE BEDSIDE COMMODE WITH ADEQUATE OUTPUT THIS SHIFT. NO OTHER SIGNIFICANT CHANGES, WILL REPORT TO DAY SHIFT RN.
--- NOTE | 2022-08-12 08:49 | NUR ---
PT TO DAY SURGERY AT THIS TIME.
--- NOTE | 2022-08-12 09:03 | NUR ---
PATIENT TRASFERED TO DAY SURGERY VIA [facility] WITH [facility] MONITORING INTACT. NG TUBE CLAMPED. DENTURES LEFT IN PATIENT ROOM.
--- NOTE | 2022-08-12 14:33 | NUR ---
PT ARRIVED TO THE ROOM POST-OP AT 1400. PT IS ALERT AND ORIENTED. SHE REPORTS ABD PAIN BUT STATES IT IS TOLERABLE. LAP SITES X7, WNL, SCANT OOZING FROM RLQ SITE, COVERED WITH A BANDAID. NG TUBE CONNECTED TO LOW INTERMITTENT SUCTION. WILL CONTINUE TO MONITOR.
--- NOTE | 2022-08-12 20:27 | NUR ---
SHIFT SUMMARY PT IS POD#0 FROM EX LAP WITH LYSIS OF ADHESIONS. PT HAS AN NG TUBE WITH 1L OUT POST OP. BOWEL SOUNDS HYPOACTIVE. PT DENIES PAIN. PT IS A SBA WHEN OOB. REPORT GIVEN ANASTACIA AYALA.
[2022-08-13 05:18] LABS: Hematocrit 36.4 % (33.0-51.0); Hemoglobin 12.3 g/dL (11.5-16.0); Mean Corpuscular HGB 29.6 pg (26.0-34.0); Mean Corpuscular HGB Conc 33.8 g/dL (31.5-36.5); Mean Corpuscular Volume 88 fL (80-100); Mean Platelet Volume 11.5 fL (9.1-12.4); Platelet Count 152 K/mm3 (150-400); RDW Coefficient Variation 13.5 % (11.7-14.2); RDW Standard Deviation 43.6 fL (35.1-46.3); Red Blood Cell Count 4.15 M/mm3 (3.80-5.20); White Blood Cell Count 10.18 K/mm3 (4.00-11.30)
--- NOTE | 2022-08-13 06:16 | NUR ---
SHIFT SUMMARY AOX4. POD 1-LYSIS OF ADHESIONS. 7 SM LAP SITES OPEN TO AIR w/o DRAINAGE. ABD MOD DISTENDED. HYPOACTIVE BT. PT DENIES ANY PAIN, REPORTS 1/10 TENDERNESS. DENIES N/V. NGT LIS c 1300ML BROWN DRAINAGE. SBY ASSIST TO RESTROOM, PT UP MULTx TO VOID. STATES SHE IS PASSING "A LITTLE GAS" NO BM THIS SHIFT. PT VERY FRUSTRATED THIS AM ABOUT STILL BEING NPO & WANTING TO ADVANCE DIET TO LIQUIDS, WILL INFORM ONCOMING NURSE. CALL LIGHT IN REACH.
[2022-08-13 07:04] LABS: Anion Gap 4 mmol/L (6-16); Blood Urea Nitrogen 21 mg/dL (8-24); Bun/Creatinine Ratio 44.4 (12.0-20.0); CO2, Blood 33 mmol/L (21-32); Calcium, Blood 8.5 mg/dL (8.5-10.1); Chloride, Blood 110 mmol/L (98-108); Creatinine, Blood 0.47 mg/dL (0.40-1.00); Glomerular Filtration Rate 108 (60-); Glucose, Blood 132 mg/dL (70-99); Magnesium, Blood 2.1 mg/dL (1.6-2.4); Phosphorus, Blood 3.2 mg/dL (2.5-4.9); Potassium, Blood 3.5 mmol/L (3.5-5.5); Sodium, Blood 147 mmol/L (136-145)
--- NOTE | 2022-08-13 19:56 | NUR ---
SHIFT SUMMARY PT A&OX4, VSS/RA, DENIES PAIN, AMB IND TO BRP/UP IN ROOM, VOIDING/BM SMEAR. TCDB & I.S. EDU/ENC/DEMONSTRATED. NGT LIS, NPO/SWISH & SPIT ONLY THIS SHIFT PER PT-ONLY 200 MLS OUT IN NGT AFTER EDU/DISCUSSION WITH PT ABOUT HER H20 INTAKE AND AFFECT IT HAS ON HER NGT MLS OUT. POWERGLIDE RAFIQ WITH TPN AT 94 MLS/HR AND IV RAC WITH IVF AT 75 MLS/HR. POD1 JENNIFER 7 WOUND GLUE LAP SITES BEAM WARPER CDI, PT REP PASSING FLATUS AND VERY SMALL BM SMEAR. REPORT TO RICCO AYALA.
--- NOTE | 2022-08-14 05:22 | NUR ---
PEOPLESOFT ADMINISTRATOR SUMMARY PT HAS BEEN PLEASANT AND COOPERATIVE TONIGHT. DENIES NAUSEA. NGT PUT OUT APPROXIMATELY 700 ML OF BROWN/GREEN LIQUID THROUGHOUT THE SHIFT. PT HAS BEEN VERY CAREFUL TO ONLY SWISH AND SPIT PO FLUIDS. PT REPORTS LITTLE TO NO PAIN. VSS, WILL CONTINUE TO MONITOR.
[2022-08-14 05:42] LABS: Hematocrit 33.9 % (33.0-51.0); Hemoglobin 11.1 g/dL (11.5-16.0)
[2022-08-14 06:01] LABS: Albumin, Blood 1.9 g/dL (3.4-5.0); Anion Gap 5 mmol/L (6-16); Blood Urea Nitrogen 19 mg/dL (8-24); CO2, Blood 34 mmol/L (21-32); Calcium, Blood 8.3 mg/dL (8.5-10.1); Chloride, Blood 99 mmol/L (98-108); Creatinine, Blood 0.43 mg/dL (0.40-1.00); Glomerular Filtration Rate 110 (60-); Glucose, Blood 152 mg/dL (70-99); Phosphorus, Blood 2.3 mg/dL (2.5-4.9); Potassium, Blood 2.9 mmol/L (3.5-5.5); Sodium, Blood 138 mmol/L (136-145)
[2022-08-14 15:41] LABS: Potassium, Blood 3.7 mmol/L (3.5-5.5)
--- NOTE | 2022-08-14 15:49 | NUR ---
CALLED DR. HDEZ AT THIS TIME WITH REPEAT SODIUM AND POTASSIUM RESULTS. SEE NEW ORDER, IV FLUID RATE ADJUSTED.
--- NOTE | 2022-08-14 17:43 | NUR ---
SUMMARY: PT IS POD2 LYSIS OF ADHESIONS. A/O, VSS.PT HAS DENIED PAIN/NAUSEA TODAY. TOTAL OF 750ML FROM NGT. TUBE FUSHED WITH WATER TO ENSURE SUCTION DRAINING WELL. PT REPORTS THAT SHE IS SWISHING AND SPITTING OUT WATER AND NOT SWALLOWING. NG OUTPUT HAS LIGHTENED IN COLOR TONIGHT. SURGICAL SITES WNL, PT REPORTS PASSING GAS. INDEPENDENT IN ROOM, VOIDING. PT REPORTED ANXIOUS TO HAVE A BM AND BE ABLE TO GO HOME. SAD ABOUT HOSPITAL STAY, BUT SEEMS MORE ENCOURAGED AND HOPEFUL TONIGHT AFTER I REVIEWED PLAN OF CARE WITH HER. NO SAFETY CONCERNS.
[2022-08-15 04:55] LABS: Hematocrit 31.6 % (33.0-51.0)
--- NOTE | 2022-08-15 04:59 | NUR ---
BANKRUPTCY PROCESSOR SUMMARY NO ACUTE CHANGES THIS SHIFT. PT AAOX4 AND PLEASANT. NGT REMAINS TO LOW INT SUCTION, ROUGHLY 700-800 ML OF OUTPUT TONIGHT. NGT OUTPUT IS MUCH CYLINDER DIE MACHINE OPERATOR BROWN COMPARED TO YESTERDAY. PT CONTINUES TO DENY NAUSEA. PT REPORTS PASSING GAS ON OCCASION BUT STILL NO BM. PT ANXIOUS TO GO HOME. VSS, WILL CONTINUE TO MONITOR.
[2022-08-15 16:24] LABS: Albumin, Blood 2.1 g/dL (3.4-5.0); Anion Gap 9 mmol/L (6-16); Blood Urea Nitrogen 15 mg/dL (8-24); CO2, Blood 33 mmol/L (21-32); Calcium, Blood 8.8 mg/dL (8.5-10.1); Chloride, Blood 99 mmol/L (98-108); Glomerular Filtration Rate 106 (60-); Glucose, Blood 111 mg/dL (70-99); Phosphorus, Blood 3.5 mg/dL (2.5-4.9); Potassium, Blood 3.4 mmol/L (3.5-5.5); Sodium, Blood 141 mmol/L (136-145)
[2022-08-15 17:12] LABS: Albumin, Blood 1.9 g/dL (3.4-5.0); Anion Gap 4 mmol/L (6-16); Blood Urea Nitrogen 14 mg/dL (8-24); Bun/Creatinine Ratio 35.3 (12.0-20.0); CO2, Blood 33 mmol/L (21-32); Calcium, Blood 8.1 mg/dL (8.5-10.1); Chloride, Blood 102 mmol/L (98-108); Glomerular Filtration Rate 112 (60-); Glucose, Blood 129 mg/dL (70-99); Phosphorus, Blood 3.6 mg/dL (2.5-4.9); Potassium, Blood 3.2 mmol/L (3.5-5.5); Sodium, Blood 139 mmol/L (136-145)
[2022-08-16 04:47] LABS: Hematocrit 32.6 % (33.0-51.0); Hemoglobin 10.8 g/dL (11.5-16.0)
[2022-08-16 05:09] LABS: Anion Gap 2 mmol/L (6-16); Blood Urea Nitrogen 13 mg/dL (8-24); Bun/Creatinine Ratio 30.6 (12.0-20.0); CO2, Blood 30 mmol/L (21-32); Calcium, Blood 8.6 mg/dL (8.5-10.1); Chloride, Blood 107 mmol/L (98-108); Creatinine, Blood 0.43 mg/dL (0.40-1.00); Glomerular Filtration Rate 110 (60-); Glucose, Blood 124 mg/dL (70-99); Magnesium, Blood 2.2 mg/dL (1.6-2.4); Phosphorus, Blood 3.5 mg/dL (2.5-4.9); Potassium, Blood 3.9 mmol/L (3.5-5.5); Sodium, Blood 139 mmol/L (136-145)
--- NOTE | 2022-08-16 06:28 | NUR ---
FIRING PIN GAUGER SUMMARY PT IS POD 3 FOR LYSIS OF ABD ADHESIONS. NGT DC'D AT START OF SHIFT. PT TRIALED SMALL AMOUNTS OF CLEAR LIQUIDS AND TOLERATED THEM WITH NO ISSUES. CONTINUES TO DENY NAUSEA OR ABD PAIN. PT HAD FIRST BM THIS MORNING, MEDIUM IN SIZE WITH SOFT FORMED BITS. VSS, WILL CONTINUE TO MONITOR.
--- NOTE | 2022-08-16 19:30 | NUR ---
SUMMARY: PT IS S/P LYSIS OF ADHESIONS. A/O, INDEPENDENT IN ROOM, VSS. SURGICAL SITES WNL, PT HAS TOLERATED FULL LIQUIDS TONIGHT. DENIES N/V AND PAIN. CONTINUES TO PASS ALOT OF GAS AND IS VOIDING. PPN AND FLUIDS INFUSING THROUGH POWERGLIDE AT RAFIQ, WNL. PLAN FOR ADVANCING DIET TOMORROW AND POSSIBLE DC. REPORT PASSED TO NOC LUCY MARQUES.
[2022-08-17 05:28] LABS: Hematocrit 31.6 % (33.0-51.0); Hemoglobin 10.6 g/dL (11.5-16.0)
[2022-08-17 06:18] LABS: Anion Gap 4 mmol/L (6-16); Blood Urea Nitrogen 13 mg/dL (8-24); Bun/Creatinine Ratio 33.4 (12.0-20.0); CO2, Blood 26 mmol/L (21-32); Calcium, Blood 8.4 mg/dL (8.5-10.1); Chloride, Blood 109 mmol/L (98-108); Creatinine, Blood 0.39 mg/dL (0.40-1.00); Glomerular Filtration Rate 113 (60-); Glucose, Blood 123 mg/dL (70-99); Magnesium, Blood 2.2 mg/dL (1.6-2.4); Phosphorus, Blood 2.9 mg/dL (2.5-4.9); Potassium, Blood 4.5 mmol/L (3.5-5.5); Sodium, Blood 139 mmol/L (136-145); Triglycerides 173 mg/dL (30-160)
--- NOTE | 2022-08-17 08:29 | NUR ---
SUMMARY PT IV FLUIDS DCD PER ORDERS,LOW FIBER DIET ORDERED. PT HAVING LIQ BMS AND ALREADY TOLERATING LIQ DIET.
--- NOTE | 2022-08-17 10:06 | NUR ---
SUMMARY PT IRRITABLE THIS AM.IV FLUIDS/PPN DCD.PT TAKING LOW FIBER DIET AND HAD GRAY FORMED BM THIS AM FOR DAY SHIFT.VOIDING WITHOUT DIFF.PT HOPING FOR DISCHARGE LATER TODAY.
--- NOTE | 2022-08-17 10:36 | NUR ---
DENIES ANY PAIN OR NAUSEA, STARTED LOW FIBER DIET THIS AM, PT TOLERATED WELL, ATE 100% OF MEAL, DENIES AND DISCOMFORT AFTER MEAL, REPORTS PASSING GAS AND HAD A SOFT FORMED BM THIS AM, ENCOURAGED TO AMBULATE IN THE HALLS BUT PT REFUSED, STATES SHE "DISLOCATED" HER KNEE A FEW DAYS AGO AND IS ONLY ABLE TO AMBULATE TO THE BATHROOM AND BACK TO BED, CONT. TO MONITOR FOR ANY CHANGES.
[2022-08-17] MEDS ORDERED: Acetaminophen650 M1 PO (13:58)
--- NOTE | 2022-08-17 14:20 | NUR ---
DC'D HOME, HI INSTRUCTIONS GIVEN, VERBALIZED UNDERSTANDING, DR. VELASQUEZ AWARE.
[2022-08-18 15:11] LABS: ALDOS/RENIN RATIO 0.3 (0.0-30.0); ALDOSTERONE 8.9 ng/dL (0.0-30.0)
== END 2022-08-17 14:32 | disposition home or self-care (01) | DRG 335 ==
LOC: ER 17:55 → SURS 17:56 → PCU 08-05 11:07 → SURS 08-05 11:07 → PCU 08-07 13:05 → SURS 08-12 10:35
PROVIDERS: Internal Medicine; Internal Medicine Nephrology; Student in an Organized Health Care Education/Training Program; Surgery; ADMIT Surgery
PROC: BD13ZZZ Fluoroscopy of Small Bowel (ICD-10-PCS; 2022-08-06)
PROC: 0DH67UZ Insertion of Feeding Device into Stomach, Via Natural or Artificial Opening (ICD-10-PCS; 2022-08-07)
PROC: 4A133R1 Monitoring of Arterial Saturation, Peripheral, Percutaneous Approach (ICD-10-PCS; 2022-08-07)
PROC: 3E0336Z Introduction of Nutritional Substance into Peripheral Vein, Percutaneous Approach (ICD-10-PCS; 2022-08-10)
PROC: 0DN84ZZ Release Small Intestine, Percutaneous Endoscopic Approach (ICD-10-PCS; 2022-08-12)
PROC: 0WQF4ZZ Repair Abdominal Wall, Percutaneous Endoscopic Approach (ICD-10-PCS; 2022-08-12)
PROC: 0DJD4ZZ Inspection of Lower Intestinal Tract, Percutaneous Endoscopic Approach (ICD-10-PCS; principal; 2022-08-12 10:00)
DX: K56.50 Intestinal adhesions [bands], unspecified as to partial versus complete obstruction (principal); I62.00 Nontraumatic subdural hemorrhage, unspecified; K43.0 Incisional hernia with obstruction, without gangrene; E87.0 Hyperosmolality and hypernatremia; N17.9 Acute kidney failure, unspecified; E46 Unspecified protein-calorie malnutrition; E87.1 Hypo-osmolality and hyponatremia; E87.4 Mixed disorder of acid-base balance; J96.11 Chronic respiratory failure with hypoxia; K56.7 Ileus, unspecified; E83.39 Other disorders of phosphorus metabolism; E88.09 Other disorders of plasma-protein metabolism, not elsewhere classified; E78.5 Hyperlipidemia, unspecified; F32.A Depression, unspecified; E87.6 Hypokalemia; J44.9 Chronic obstructive pulmonary disease, unspecified; E87.5 Hyperkalemia; N18.2 Chronic kidney disease, stage 2 (mild); D63.1 Anemia in chronic kidney disease; E87.8 Other disorders of electrolyte and fluid balance, not elsewhere classified; E86.9 Volume depletion, unspecified; D75.1 Secondary polycythemia; Z20.822 Contact with and (suspected) exposure to COVID-19; Z79.899 Other long term (current) drug therapy; Z90.710 Acquired absence of both cervix and uterus; Z98.890 Other specified postprocedural states; Z87.891 Personal history of nicotine dependence; Z68.21 Body mass index [BMI] 21.0-21.9, adult; Z79.4 Long term (current) use of insulin
CPT/HCPCS: 0241U; 36415; 36600; 70450; 71045; 74018; 74022; 74176; 74250; 80048; 80051; 80053; 80061; 80069; 81001; 82088; 82140; 82803; 82947; 83036; 83605; 83690; 83735; 84100; 84132; 84244; 84295; 84443; 84478; 84484; 85014; 85018; 85025; 85027; 87086; 93005; 93010; 94762; 96361; 96374; 96376; 99285-25; A9270; C1751; C9113; J0694; J1100; J1120; J2250; J2405; J2704; J3010; J3411; J3480; J7030; J7040; J7050; J7060; J7070; J7120; J7131

== ENCOUNTER → 2022-08-26 | Outpatient (CLI) | payer OTHER ==
[~2022-08-26] MED LIST changes: +Acetaminophen650 M1 PO
[2022-08-26 22:29] LABS: Protein, Urine Quantitative 8.2 mg/dL (0.0-11.9)
[2022-08-26 22:33] LABS: Microalbumin, Urine Quant. <5.000 mg/L (0.000-20.000)
== END | disposition home or self-care (01) ==
LOC: LAB 09:41 → LAB SHORT 09:41
PROVIDERS: Internal Medicine Nephrology
DX: N18.2 Chronic kidney disease, stage 2 (mild) (principal); D63.1 Anemia in chronic kidney disease; N25.81 Secondary hyperparathyroidism of renal origin; E55.9 Vitamin D deficiency, unspecified; E78.00 Pure hypercholesterolemia, unspecified; G60.9 Hereditary and idiopathic neuropathy, unspecified; R76.9 Abnormal immunological finding in serum, unspecified; R94.5 Abnormal results of liver function studies
CPT/HCPCS: 81050; 82043; 82570; 84156

== ENCOUNTER 2022-12-31 19:10 | Emergency (ER) | payer OTHER ==
[~2022-12-31] VITALS: Ht 157.5 cm; Wt 61.7 kg
[2022-12-31 20:16] LABS: BASOPHILS ABSOLUTE AUTO 0.04 K/mm3 (0.00-0.23); BASOPHILS PERCENT AUTO 0 % (0-2); EOSINOPHILS ABSOLUTE AUTO 0.01 K/mm3 (0.00-0.68); EOSINOPHILS PERCENT AUTO 0 % (0-6); Hemoglobin 14.4 g/dL (11.5-16.0); IMMATURE GRAN ABSOLUTE AUTO 0.06 K/mm3 (0.00-0.10); IMMATURE GRAN PERCENT AUTO 0 % (0-1); LYMPHOCYTES PERCENT AUTO 7 % (21-46); MONOCYTES ABSOLUTE AUTO 1.16 K/mm3 (0.16-1.47); MONOCYTES PERCENT AUTO 7 % (4-13); Mean Corpuscular HGB 29.8 pg (26.0-34.0); Mean Corpuscular HGB Conc 33.5 g/dL (31.5-36.5); Mean Corpuscular Volume 89 fL (80-100); Mean Platelet Volume 9.6 fL (9.1-12.4); NEUTROPHILS PERCENT AUTO 85 % (41-73); Platelet Count 212 K/mm3 (150-400); RDW Coefficient Variation 13.6 % (11.7-14.2); RDW Standard Deviation 44.5 fL (35.1-46.3); Red Blood Cell Count 4.84 M/mm3 (3.80-5.20); White Blood Cell Count 16.77 K/mm3 (4.00-11.30)
[2022-12-31 20:35] LABS: Albumin, Blood 3.5 g/dL (3.4-5.0); Albumin/Globulin Ratio 0.9 (0.8-1.8); Bilirubin, Total 0.7 mg/dL (0.1-1.0); Calcium, Blood 10.5 mg/dL (8.5-10.1); Creatinine, Blood 0.58 mg/dL (0.40-1.00); Globulin, Blood 3.8 g/dL (2.2-4.0); Potassium, Blood 3.9 mmol/L (3.5-5.5); Total Protein, Blood 7.3 g/dL (6.4-8.2)
[2022-12-31 22:33] VITALS: BP 139/89
[2022-12-31] MEDS ORDERED: AMOCLA875 PO (23:38)
[2022-12-31] MEDS ORDERED: DEXA4 PO (23:38)
== END 2022-12-31 23:55 | disposition left against medical advice (07) ==
LOC: ER 19:10
PROVIDERS: Student in an Organized Health Care Education/Training Program
DX: J02.9 Acute pharyngitis, unspecified (principal); J04.0 Acute laryngitis; R60.9 Edema, unspecified; R49.0 Dysphonia; E78.5 Hyperlipidemia, unspecified; Z87.891 Personal history of nicotine dependence
CPT/HCPCS: 70491; 80053; 85025; 96374-59; 99283-25; J1100; Q9967

== ENCOUNTER 2023-07-07 07:49 | Emergency (ER) | payer OTHER ==
[~2023-07-07] VITALS: Ht 157.5 cm; Wt 61.7 kg
[~2023-07-07 07:49] MED LIST changes: +AMOCLA875 PO; +DEXA4 PO
[2023-07-07] MEDS ORDERED: ERGO400 PO (08:23)
[2023-07-07] MEDS ORDERED: Aspirin325 MG PO (08:23)
[2023-07-07 08:41] LABS: BASOPHILS ABSOLUTE AUTO 0.03 K/mm3 (0.00-0.23); BASOPHILS PERCENT AUTO 0 % (0-2); EOSINOPHILS ABSOLUTE AUTO 0.03 K/mm3 (0.00-0.68); EOSINOPHILS PERCENT AUTO 0 % (0-6); Hematocrit 37.5 % (33.0-51.0); Hemoglobin 11.6 g/dL (11.5-16.0); IMMATURE GRAN ABSOLUTE AUTO 0.05 K/mm3 (0.00-0.10); IMMATURE GRAN PERCENT AUTO 0 % (0-1); LYMPHOCYTES PERCENT AUTO 12 % (21-46); MONOCYTES ABSOLUTE AUTO 1.06 K/mm3 (0.16-1.47); MONOCYTES PERCENT AUTO 9 % (4-13); Mean Corpuscular HGB 27.9 pg (26.0-34.0); Mean Corpuscular HGB Conc 30.9 g/dL (31.5-36.5); Mean Corpuscular Volume 90 fL (80-100); Mean Platelet Volume 8.7 fL (9.1-12.4); NEUTROPHILS ABSOLUTE AUTO 9.56 K/mm3 (1.96-9.15); NEUTROPHILS PERCENT AUTO 78 % (41-73); Platelet Count 763 K/mm3 (150-400); RDW Standard Deviation 49.4 fL (35.1-46.3); Red Blood Cell Count 4.16 M/mm3 (3.80-5.20); White Blood Cell Count 12.23 K/mm3 (4.00-11.30)
[2023-07-07 08:57] LABS: Albumin, Blood 2.6 g/dL (3.4-5.0); Albumin/Globulin Ratio 0.5 (0.8-1.8); Bilirubin, Total 0.2 mg/dL (0.1-1.0); Bun/Creatinine Ratio 22.7 (12.0-20.0); Calcium, Blood 9.5 mg/dL (8.5-10.1); Creatinine, Blood 0.49 mg/dL (0.40-1.00); Globulin, Blood 4.9 g/dL (2.2-4.0); Potassium, Blood 4.2 mmol/L (3.5-5.5); Total Protein, Blood 7.5 g/dL (6.4-8.2)
[2023-07-07 12:53] VITALS: BP 106/82
== END 2023-07-07 13:20 | disposition short-term general hospital (02) ==
LOC: ER 07:49
PROVIDERS: Student in an Organized Health Care Education/Training Program
DX: J96.91 Respiratory failure, unspecified with hypoxia (principal); I31.2 Hemopericardium, not elsewhere classified; J90 Pleural effusion, not elsewhere classified; Z98.890 Other specified postprocedural states; E78.5 Hyperlipidemia, unspecified; Z87.891 Personal history of nicotine dependence; Z88.6 Allergy status to analgesic agent; Z88.8 Allergy status to other drugs, medicaments and biological substances
CPT/HCPCS: 71046; 71260; 80053; 83880; 84484; 85025; 93005; 93010; 93306; 93971; 99285-25; Q9967

== ENCOUNTER 2025-03-16 13:03 | Inpatient (IN) | payer OTHER ==
[~2025-03-16] VITALS: Ht 157.5 cm; Wt 71.3 kg
[~2025-03-16 13:03] MED LIST changes: +Aspirin325 MG PO; +ERGO400 PO
[2025-03-16 13:41] LABS: BASOPHILS ABSOLUTE AUTO 0.05 K/mm3 (0.00-0.23); BASOPHILS PERCENT AUTO 1 % (0-2); EOSINOPHILS ABSOLUTE AUTO 0.06 K/mm3 (0.00-0.68); EOSINOPHILS PERCENT AUTO 1 % (0-6); Hematocrit 42.8 % (33.0-51.0); Hemoglobin 14.0 g/dL (11.5-16.0); IMMATURE GRAN ABSOLUTE AUTO 0.01 K/mm3 (0.00-0.10); IMMATURE GRAN PERCENT AUTO 0 % (0-1); LYMPHOCYTES ABSOLUTE AUTO 1.71 K/mm3 (0.84-5.20); LYMPHOCYTES PERCENT AUTO 23 % (21-46); MONOCYTES ABSOLUTE AUTO 0.76 K/mm3 (0.16-1.47); MONOCYTES PERCENT AUTO 10 % (4-13); Mean Corpuscular HGB Conc 32.7 g/dL (31.5-36.5); Mean Corpuscular Volume 89 fL (80-100); NEUTROPHILS ABSOLUTE AUTO 4.97 K/mm3 (1.96-9.15); NEUTROPHILS PERCENT AUTO 66 % (41-73); NRBC ABSOLUTE 0.00 K/mm3 (0.00-0.02); NRBC Auto 0.0 /100 WBC (0.0-0.2); Platelet Count 300 K/mm3 (150-400); RDW Coefficient Variation 14.4 % (11.7-14.2); RDW Standard Deviation 46.1 fL (35.1-46.3)
[2025-03-16 14:15] LABS: D-Dimer, Quantitative 1.05 mg/L FEU (0.00-0.52); Prothrombin Time Results 12.1 Sec (9.7-11.5)
[2025-03-16 14:16] LABS: Alanine Aminotransfer (ALT/SGP 77.0 U/L (12-78); Albumin, Blood 3.6 g/dL (3.4-5.0); Albumin/Globulin Ratio 1.1 (0.8-1.8); Anion Gap 10.0 mmol/L (3-11); Aspartate Aminotrans (AST/SGOT 40.0 U/L (12-37); Bilirubin, Total 0.5 mg/dL (0.1-1.0); Blood Urea Nitrogen 26.0 mg/dL (8-24); CO2, Blood 28.0 mmol/L (21-32); Calcium, Blood 10.6 mg/dL (8.5-10.1); Chloride, Blood 105.0 mmol/L (98-108); Creatinine, Blood 0.81 mg/dL (0.40-1.00); Globulin, Blood 3.4 g/dL (2.2-4.0); Glucose, Blood 104.0 mg/dL (70-99); Potassium, Blood 4.5 mmol/L (3.5-5.5); Sodium, Blood 138.0 mmol/L (136-145); Total Protein, Blood 7.0 g/dL (6.4-8.2)
[2025-03-16] MEDS ORDERED: Diltiazem HCl 5 MG / ML 5ML Vial IV ONE (14:20)
[2025-03-16] MEDS ORDERED: NS 1,000 ML IV SCH (14:20)
[2025-03-16] MEDS ORDERED: FLU VACC TS2025(65UP)/MF59C/PF 45 MCG/0.5 ML SYRINGE IM SCH (15:55)
[2025-03-16 18:06] VITALS: BP 140/86
--- NOTE | 2025-03-16 18:18 | NUR ---
SHIFT SUMMARY PT A NEW ADMIT THIS EVENING, LUCY OSULLIVAN IS CURRENTLY WORKING ON THE ADMIT. NO ACUTE EVENTS SINCE THE ADMIT. PT IS ON TELE. INDEPENDENT. SOB WITH AMBULATION BUT SEEMS TO RECOVER WELL. WILL GIVE REPORT TO ONCOMING NURSE.
[2025-03-16] MEDS ORDERED: BUPROPION XL150 M1 PO (18:22)
[2025-03-16] MEDS ORDERED: CALCIUM CARBON500 M1 PO (18:23)
[2025-03-16 19:16] VITALS: BP 135/88
[2025-03-16 19:17] VITALS: BP 135/88
[2025-03-17 00:41] VITALS: BP 130/91
[2025-03-17 04:27] VITALS: BP 122/87
--- NOTE | 2025-03-17 06:28 | NUR ---
SHIFT SUMMARY: Pt is admitted for afib and is a full code. Is alert and able to make needs known. ADLs have been IND. denies pain or discomfort when asked. IV to left AC is patent with dressing that is CDI. saul noted in the 100-110s and in a flutter. Was informed of a HR spike into the 140s for about 10s while up and walking with in the unit.
[2025-03-17 06:46] LABS: BASOPHILS ABSOLUTE AUTO 0.04 K/mm3 (0.00-0.23); BASOPHILS PERCENT AUTO 1 % (0-2); EOSINOPHILS ABSOLUTE AUTO 0.06 K/mm3 (0.00-0.68); EOSINOPHILS PERCENT AUTO 1 % (0-6); Hematocrit 43.8 % (33.0-51.0); Hemoglobin 13.7 g/dL (11.5-16.0); IMMATURE GRAN ABSOLUTE AUTO 0.02 K/mm3 (0.00-0.10); IMMATURE GRAN PERCENT AUTO 0 % (0-1); LYMPHOCYTES ABSOLUTE AUTO 1.19 K/mm3 (0.84-5.20); LYMPHOCYTES PERCENT AUTO 18 % (21-46); MONOCYTES ABSOLUTE AUTO 0.55 K/mm3 (0.16-1.47); MONOCYTES PERCENT AUTO 8 % (4-13); Mean Corpuscular HGB Conc 31.3 g/dL (31.5-36.5); Mean Corpuscular Volume 91 fL (80-100); NEUTROPHILS ABSOLUTE AUTO 4.93 K/mm3 (1.96-9.15); NEUTROPHILS PERCENT AUTO 73 % (41-73); NRBC ABSOLUTE 0.00 K/mm3 (0.00-0.02); NRBC Auto 0.0 /100 WBC (0.0-0.2); Platelet Count 275 K/mm3 (150-400); RDW Coefficient Variation 14.5 % (11.7-14.2); RDW Standard Deviation 47.5 fL (35.1-46.3)
[2025-03-17 07:14] VITALS: BP 132/89
[2025-03-17 07:15] LABS: Anion Gap 8.0 mmol/L (3-11); Blood Urea Nitrogen 23.0 mg/dL (8-24); CO2, Blood 26.0 mmol/L (21-32); Calcium, Blood 9.0 mg/dL (8.5-10.1); Chloride, Blood 104.0 mmol/L (98-108); Creatinine, Blood 0.82 mg/dL (0.40-1.00); Glucose, Blood 125.0 mg/dL (70-99); Potassium, Blood 4.4 mmol/L (3.5-5.5); Sodium, Blood 134.0 mmol/L (136-145)
[2025-03-17] MEDS ORDERED: Enoxaparin 40 MG/0.4 ML SYR SC SCH (09:00)
[2025-03-17 11:26] VITALS: BP 134/88
[2025-03-17] MEDS ORDERED: ASPI81CH PO (13:18)
--- NOTE | 2025-03-17 17:09 | NUR ---
TRANSFER NOTE PT REMAINS IN 90s-100s AFLUTTER ON TELE. INDEPENDENT IN ROOM. TOLERATING PO METOPROLOL WELL. NO COMPLAINTS AT THIS TIME. IV REMAINS PATENT. ALL BELONGINGS TRANSFERRED WITH PT FROM RM 303 TO 332. REPORT GIVEN TO LESLY POLLARD.
[2025-03-17 17:15] VITALS: BP 128/87
--- NOTE | 2025-03-17 19:12 | NUR ---
SHIFT SUMMARY: PATIENT A+O X4 AND WAS MOVED FROM ROOM 332 TO ROOM 313. PATIENT REMAINS IND IN ROOM AND HALLWAYS. PATIENT NOTED TO GO INTO [facility]. DR. MOSER NOTIFIED OF SYMPTOMS AND TRASITION INTO [facility]. PATIENT ON RA CURRENTLY WITH NO NEEDS. PLAN TO MANAGE SYMPTOMS AT THIS TIME. WILL CONTINUE TO MONITOR, WILL GIVE REPORT TO ONCOMING RN.
[2025-03-17 20:43] VITALS: BP 127/91
[2025-03-18 00:17] VITALS: BP 119/97
[2025-03-18 04:25] VITALS: BP 127/101
[2025-03-18 05:12] LABS: BASOPHILS ABSOLUTE AUTO 0.04 K/mm3 (0.00-0.23); BASOPHILS PERCENT AUTO 1 % (0-2); EOSINOPHILS ABSOLUTE AUTO 0.04 K/mm3 (0.00-0.68); EOSINOPHILS PERCENT AUTO 1 % (0-6); Hematocrit 47.5 % (33.0-51.0); Hemoglobin 15.2 g/dL (11.5-16.0); IMMATURE GRAN ABSOLUTE AUTO 0.01 K/mm3 (0.00-0.10); IMMATURE GRAN PERCENT AUTO 0 % (0-1); LYMPHOCYTES ABSOLUTE AUTO 1.65 K/mm3 (0.84-5.20); LYMPHOCYTES PERCENT AUTO 20 % (21-46); MONOCYTES ABSOLUTE AUTO 0.52 K/mm3 (0.16-1.47); MONOCYTES PERCENT AUTO 6 % (4-13); Mean Corpuscular HGB Conc 32.0 g/dL (31.5-36.5); Mean Corpuscular Volume 91 fL (80-100); NEUTROPHILS ABSOLUTE AUTO 5.85 K/mm3 (1.96-9.15); NEUTROPHILS PERCENT AUTO 72 % (41-73); NRBC ABSOLUTE 0.00 K/mm3 (0.00-0.02); NRBC Auto 0.0 /100 WBC (0.0-0.2); Platelet Count 302 K/mm3 (150-400); RDW Coefficient Variation 14.6 % (11.7-14.2); RDW Standard Deviation 47.8 fL (35.1-46.3)
[2025-03-18 05:29] LABS: Anion Gap 9.0 mmol/L (3-11); Blood Urea Nitrogen 25.0 mg/dL (8-24); CO2, Blood 29.0 mmol/L (21-32); Calcium, Blood 9.3 mg/dL (8.5-10.1); Chloride, Blood 103.0 mmol/L (98-108); Creatinine, Blood 0.89 mg/dL (0.40-1.00); Glucose, Blood 141.0 mg/dL (70-99); Potassium, Blood 4.2 mmol/L (3.5-5.5); Sodium, Blood 137.0 mmol/L (136-145)
--- NOTE | 2025-03-18 05:34 | NUR ---
SHIFT SUMMARY PT ADMITTED FOR AFIB RVR. PT HAS IV LEFT AC. PT IS ON ROOM AIR. PT TAKES MEDICATION WHOLE WITH WATER. PT IS ON TELE. PT IS INDEPENDENT AROUND ROOM AND TO THE TOILET. PT IS COOPERATIVE WITH CARE. ADDED FROM MED REC 300MG WELLBUTRIN BID. PT WAS EXPERIENCING EPISODES RESEMBLING ANXIETY OR PANICK, AND NOT BEING ABLE TO LAY DOWN. PT STATED SHE TAKES WELLBUTRIN BUT HASN'T SINCE SHE HAS BEEN IN THE HOSPITAL. PT APPEARS TO HAVE SLEPT ON AND OFF THROUGH THE NIGHT. PT BED IN LOW POSITION, CALL LIGHT WITHIN REACH, RAILS TIMES 2.
[2025-03-18 07:26] VITALS: BP 127/96
[2025-03-18] MEDS ORDERED: Cholecalciferol 1000 Unit Tablet (=25MCG) PO SCH (09:00)
[2025-03-18] MEDS ORDERED: Calcium Carbonate 1,250 MG TABLET PO SCH (09:00)
--- NOTE | 2025-03-18 11:07 | NUR ---
AM NOTE: AT AROUND 1035, PATIENT REPORTS SOB AND HOT FLUSHES, DENIES CP/PRESSURE. THIS RN CALLED TELE, TECH PER TELE PATIENT HR WENT UP TO 136 BPM FOR ABOUT 2 MINS AND BACK DOWN TO 90'S, A-FLUTTER RHYTHM. 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 NOTIFIED DR. MOSER c THIS CONCERN AND PATIENT REQUEST. PER DR. MOSER HE WILL REVIEWED PATIENT CHART AND TELE.
[2025-03-18] MEDS ORDERED: FURO40 PO (13:51)
[2025-03-18] MEDS ORDERED: METO25 PO (13:52)
--- NOTE | 2025-03-18 14:57 | NUR ---
SHIFT/DISCHARGE SUMMARY: PATIENT A/OX4, PLEASANT AND COOPERATIVE c CARE. PATIENT HAD OT EPISODE OF SOB, HOT FLASHES, AND HR WENT UP TO 136 BPM, A-FLUTTER, DR. MOSER WAS NOTIFIED c THE EPISODE. PATIENT CONTINUES TO DENIES CP/PRESSURE AND DIZZINESS. PATIENT ADAMANT TO GO HOME AND VERBALIZES UNDERSTANDING. PATIENT STATED "I TOTALLY UNDERSTAND, I HAVE A COMING APPOINTMENT c MY CARDIOLOGY IN [place] AND DR. KRUEGER." DR. MOSER CAME INTO ROOM AND SPOKE TO PATIENT. PATIENT RECEIVED SCHEDULED MEDS PER EMAR. PATIENT TOOK A SHOWER TODAY. PIV DC'D BY LEONA MCKEON. PATIENT DISCHARGE HOME. DISCHARGE INSTRUCTIONS PACKET GIVEN TO PATIENT. PATIENT EDUCATED ON ADMITTING DX'S OF AFIB, S/S, TX, NEW RX AND TO F/U c PCP AND CARDILOLOGY. PATIENT VERBALIZED UNDERSTANDING AND NO FURTHER QUESTIONS. RX WAS FAXED TO PATIENT PREFERRED PHARMACY-[facility]. ALL PERSONAL BELONGINGS WERE SENT c PATIENT. PATIENT LEFT THE ROOM AT 1445 TRANSPORTED VIA BY MARCUS TO PATIENT ENTRANCE, WERE HER RIDE AWATING FOR HER.
== END 2025-03-18 16:09 | disposition home or self-care (01) | DRG 309 ==
LOC: ER 13:03 → MEDS 13:04
PROVIDERS: Physician Assistant; ADMIT Family Medicine
DX: I48.0 Paroxysmal atrial fibrillation (principal); J81.1 Chronic pulmonary edema; J90 Pleural effusion, not elsewhere classified; T82.897A Other specified complication of cardiac prosthetic devices, implants and grafts, initial encounter; R79.1 Abnormal coagulation profile; E87.70 Fluid overload, unspecified; I48.92 Unspecified atrial flutter; Y71.2 Prosthetic and other implants, materials and accessory cardiovascular devices associated with adverse incidents; R91.8 Other nonspecific abnormal finding of lung field; Z79.82 Long term (current) use of aspirin; Z87.891 Personal history of nicotine dependence
CPT/HCPCS: 36415; 71046; 71260; 80048; 80053; 83735; 83880; 84443; 84484; 85025; 85379; 85610; 85730; 93005; 93010; 96361; 96372; 96374-59; 96375; 99285-25; A9270; G0378; J1650; J1938; J7030; Q9967